=== PATIENT | male | born 1990 | race Caucasian/White ===

== ENCOUNTER 2018-11-10 18:35 | Inpatient (IN) | payer OTHER ==
[~2018-11-10] VITALS: Ht 170.2 cm; Wt 137.5 kg
[2018-11-10 18:53] VITALS: Ht 170.2 cm; Wt 137.5 kg
[2018-11-10 20:53] LABS: BASOPHIL % 0.9 % (0-2); PLATELET COUNT 222 x10^3mcL (130-400); RED CELL DISTRIBUTION WIDTH 13.2 % (11.5-14.5)
[2018-11-10 21:06] LABS: ALBUMIN 4.2 g/dL (3.4-5.0); ALKALINE PHOSPHATASE 147 U/L (46-116); ALT/SGPT 117 U/L (16-63); AST/SGOT 46 U/L (15-37); CALCIUM 9.8 mg/dL (8.5-10.1); CARBON DIOXIDE 22.9 mmol/L (21-32); CHLORIDE SERUM 92 mmol/L (98-107); CREATININE SERUM 1.4 mg/dL (0.7-1.3); GFR1 > 60 mL/min; POTASSIUM SERUM 4.1 mmol/L (3.5-5.1); SODIUM SERUM 130 mmol/L (136-145)
[2018-11-10 21:08] LABS: microscopic required? NO
[2018-11-10 21:08] LABS: TOTAL PROTEIN, SERUM 8.9 g/dL (6.4-8.2)
[2018-11-10 21:09] LABS: GLUCOSE SERUM 629 mg/dL (74-106)
[2018-11-10 21:14] LABS: UA SPECIFIC GRAVITY <=1.005 (1.005-1.035); urine erythrocyte NEGATIVE (NEGATIVE)
[2018-11-10 22:59] LABS: CHOLESTEROL 194 mg/dL (<200); MAGNESIUM 2.2 mg/dL (1.8-2.4); PHOSPHOROUS 4.6 mg/dL (2.5-4.9)
[2018-11-10 23:02] LABS: CHOLESTEROL/HDL RATIO 6.9; HDL CHOLESTEROL 28 mg/dL (40-60); TRIGLYCERIDES 426 mg/dL (<150)
[2018-11-11 00:09] VITALS: BP 146/74
[2018-11-11 05:23] VITALS: BP 121/73
[2018-11-11 06:59] LABS: CALCIUM 8.2 mg/dL (8.5-10.1); CARBON DIOXIDE 26.3 mmol/L (21-32); CHLORIDE SERUM 102 mmol/L (98-107); CREATININE SERUM 1.1 mg/dL (0.7-1.3); GFR1 > 60 mL/min; GLUCOSE SERUM 378 mg/dL (74-106); MAGNESIUM 1.9 mg/dL (1.8-2.4); PHOSPHOROUS 3.5 mg/dL (2.5-4.9); POTASSIUM SERUM 4.3 mmol/L (3.5-5.1); SODIUM SERUM 137 mmol/L (136-145)
[2018-11-11 07:05] LABS: BASOPHIL % 0.5 % (0-2); PLATELET COUNT 176 x10^3mcL (130-400); RED CELL DISTRIBUTION WIDTH 12.5 % (11.5-14.5)
[2018-11-11 07:55] VITALS: BP 142/86
[2018-11-11 12:30] VITALS: BP 141/83
[2018-11-11 14:10] LABS: FREE T4 1.01 ng/dL (0.76-1.46); FREE THYROXINE INDEX 2.5 ug/dL (1.4-4.5)
[2018-11-11 14:11] LABS: T3 TOTAL 0.68 ng/mL
[2018-11-11 16:48] LABS: AMPHETAMINE QUAL UR NONE DETECTED (See below)
[2018-11-11 17:15] VITALS: BP 128/73
[2018-11-11 21:00] VITALS: BP 148/62
[2018-11-12 05:33] VITALS: BP 116/61
[2018-11-12 06:21] LABS: BASOPHIL % 0.6 % (0-2); PLATELET COUNT 189 x10^3mcL (130-400); RED CELL DISTRIBUTION WIDTH 12.4 % (11.5-14.5)
[2018-11-12 06:35] LABS: CALCIUM 7.9 mg/dL (8.5-10.1); CARBON DIOXIDE 24.4 mmol/L (21-32); CHLORIDE SERUM 105 mmol/L (98-107); CREATININE SERUM 0.9 mg/dL (0.7-1.3); GFR1 > 60 mL/min; GLUCOSE SERUM 312 mg/dL (74-106); POTASSIUM SERUM 3.5 mmol/L (3.5-5.1); SODIUM SERUM 140 mmol/L (136-145)
[2018-11-12] MEDS ORDERED: LANTI SQ (07:30)
[2018-11-12] MEDS ORDERED: HUMALOG100 U/ML SC ×2 (07:33→10:13)
[2018-11-12] MEDS ORDERED: GLUCOSE TEST S1 EACH MC (07:34)
[2018-11-12] MEDS ORDERED: 1ST TIER UNILE1 EAC1 MC (07:35)
[2018-11-12] MEDS ORDERED: Glucometer (07:36)
[2018-11-12] MEDS ORDERED: METFORMIN HCL1000 MG PO (07:37)
[2018-11-12 10:17] VITALS: BP 140/67
[2018-11-12 14:00] VITALS: BP 125/66
== END 2018-11-12 14:53 | disposition home or self-care (01) | DRG 420 ==
LOC: ED 18:35 → MU 22:05 → DU 22:05
PROVIDERS: Emergency Medicine; Family Medicine
DX: E11.65 Type 2 diabetes mellitus with hyperglycemia (principal); N17.0 Acute kidney failure with tubular necrosis; E87.1 Hypo-osmolality and hyponatremia
CPT/HCPCS: 36600; 82962; 84439; J1644; J1815; J7030; Q0092

== ENCOUNTER 2020-05-13 05:09 | Emergency (ER) | payer OTHER ==
[~2020-05-13] VITALS: Ht 172.7 cm; Wt 143.1 kg
[~2020-05-13 05:09] MED LIST: 1ST TIER UNILE1 EAC1 MC; GLUCOSE TEST S1 EACH MC; Glucometer; HUMALOG100 U/ML SC; LANTI SQ; METFORMIN HCL1000 MG PO
[2020-05-13 05:18] VITALS: Ht 172.7 cm; Wt 143.1 kg
[2020-05-13 07:55] VITALS: BP 142/84
== END 2020-05-13 07:55 | disposition home or self-care (01) ==
LOC: ED 05:09
DX: K20.9 Esophagitis, unspecified (principal); M54.9 Dorsalgia, unspecified; E11.9 Type 2 diabetes mellitus without complications
CPT/HCPCS: 72072; 82962